=== PATIENT | male | born 1955 | race Caucasian/White ===

== ENCOUNTER 2023-04-20 20:56 | Emergency (ER) | payer OTHER ==
[~2023-04-20] VITALS: Ht 172.7 cm; Wt 61.4 kg
[2023-04-20] MEDS ORDERED: AZIT4SOL LEFTEYE (21:46)
[2023-04-20] MEDS ORDERED: IBUP-1454 PO (21:46)
[2023-04-20 21:55] VITALS: BP 102/76; PULSE 96; RESP 18; TEMP 98.1; O2SAT 97
== END 2023-04-20 21:57 | disposition home or self-care (01) ==
LOC: ER 20:56
DX: S05.02XA Injury of conjunctiva and corneal abrasion without foreign body, left eye, initial encounter (principal); X58.XXXA Exposure to other specified factors, initial encounter; Y93.89 Activity, other specified; Y92.89 Other specified places as the place of occurrence of the external cause; Y99.8 Other external cause status